=== PATIENT | male | born 1935 | race Caucasian/White ===

== ENCOUNTER 2017-11-17 11:27 | Day surgery (SDC) | payer MEDICARE ==
[~2017-11-17] VITALS: Ht 177.8 cm; Wt 97.5 kg
[~2017-11-17 11:27] MED LIST: HYDR1TAB94 PO; Keflex500 MG PO
[2017-11-18 04:32] LABS: BASOPHILS ABSOLUTE AUTO 0.01 K/mm3 (0.00-0.23); BASOPHILS PERCENT AUTO 0 % (0-2); EOSINOPHILS PERCENT AUTO 0 % (0-6); Hematocrit 37.3 % (37.0-53.0); Hemoglobin 12.2 g/dL (13.5-17.5); IMMATURE GRAN ABSOLUTE AUTO 0.06 K/mm3 (0.00-0.10); IMMATURE GRAN PERCENT AUTO 1 % (0-1); LYMPHOCYTES ABSOLUTE AUTO 0.67 K/mm3 (0.84-5.20); LYMPHOCYTES PERCENT AUTO 5 % (21-46); MONOCYTES PERCENT AUTO 4 % (4-13); Mean Corpuscular HGB 32.4 pg (26.0-34.0); Mean Corpuscular HGB Conc 32.7 g/dL (31.5-36.5); Mean Corpuscular Volume 99 fL (80-100); Mean Platelet Volume 10.9 fL (9.1-12.4); NEUTROPHILS ABSOLUTE AUTO 12.04 K/mm3 (1.96-9.15); NEUTROPHILS PERCENT AUTO 91 % (41-73); Platelet Count 216 K/mm3 (150-400); RDW Coefficient Variation 12.2 % (11.7-14.2); RDW Standard Deviation 44.7 fL (35.1-46.3); Red Blood Cell Count 3.76 M/mm3 (4.30-5.90); White Blood Cell Count 13.28 K/mm3 (4.00-11.30)
[2017-11-18 04:50] LABS: Bun/Creatinine Ratio 13.8 (12.0-20.0); Calcium, Blood 7.7 mg/dL (8.5-10.1); Creatinine, Blood 1.3 mg/dL (0.60-1.20); Potassium, Blood 4.9 mmol/L (3.5-5.5)
[2017-11-18] MEDS ORDERED: ASPI325EC PO (12:02)
[2017-11-18] MEDS ORDERED: Percocet 5-3251 EACH PO (12:05)
== END 2017-11-18 15:04 | disposition home or self-care (01) ==
LOC: ORSCMMR 11:27 → ORD 13:00 → ORSCMMR 13:00 → SURS 17:01 → ORSCMMR 11-18 15:04
PROVIDERS: Orthopaedic Surgery
PROC: 0SRD06A Replacement of Left Knee Joint with Oxidized Zirconium on Polyethylene Synthetic Substitute, Uncemented, Open Approach (ICD-10-PCS; principal; 2017-11-18)
DX: M17.11 Unilateral primary osteoarthritis, right knee (principal)
CPT/HCPCS: 36415; 73560-LT; 80048; 85025; 86850; 86900; 86901; 88300; 97110; 97116; 97162; 97530; C1776; G8978; G8979; G8980; J0171; J0735; J1100; J1885; J2250; J2405; J2710; J2795; J3010; J7120

== ENCOUNTER 2018-03-23 09:59 | Day surgery (SDC) | payer MEDICARE ==
[~2018-03-23] VITALS: Ht 177.8 cm; Wt 93.9 kg
[~2018-03-23 09:59] MED LIST changes: +ASPI325EC PO; +Percocet 5-3251 EACH PO
--- NOTE | 2018-03-23 11:21 | NUR ---
PERMISSION TO TREAT PATIENT GAVE STUDENT NURSE PERMISSION TO TREAT AND ACCESS MEDICAL RECORDS ON THIS DATE.
--- NOTE | 2018-03-23 11:26 | NUR ---
History, Chart, Medications and Allergies reviewed before start of procedure. Lungs clear T/O to Auscultation. Patient confirms NPO status and agrees with scheduled surgery. Patient reports completing Chlorhexadine shower X2 prior to admission to hospital.
--- NOTE | 2018-03-23 18:31 | NUR ---
patient has difficulty using pain scale, says pain is somewhere below 5. sitting in bed reading a paperback book. mckayla wrap dry and intact to right leg
--- NOTE | 2018-03-23 19:00 | NUR ---
RECEIVED HAND OFF FROM DAY NURSE USING SBAR DURING BEDSIDE REPORT. LYING IN SEMI FOWLERS WITH EYES OPEN WHILE READING A BOOK AND TV ON IN THE BACKGROUND. AAO X3, JOHNSON, FOLLOWS ALL COMMANDS. REORIENTED TO ROOM, CALL SYSTEM, AND POC, VOICED UNDERSTANDING. VOICED THAT PAIN IS WELL MANAGED AT THIS TIME, UNABLE TO RATE HIS PAIN CURRENTLY. NURSING REITERATED PAIN SCALE AND THAT HE SHOULD CALL FOR PRN MEDS WHEN PAIN LEVEL IS MAXIMALLY 4/10, VOICES UNDERSTANDING. RESPIRATIONS EVEN AND UNLABORED ON ROOM AIR. LUNG SOUNDS CLEAR BILATERALLY. ABDOMEN SOFT AND NONDISTENDED. BOWEL SOUNDS PRESENT IN ALL QUADS. RIGHT FA 18G PIV IS PATENT, FLUSHING WIHT EASE WHILE INFUSING LR AT 75ML/HR. CONTINENT OF BOWEL AND BLADDER, USES URINAL AT BEDSIDE. 100ML OF CLEAR CONCENTRATED URINE EMPTIED. RIGHT KNEE NOTED WITH CHRYOTHERAPY IN PLACE COVERED IN JONNY WRAP. TEDS/SCD'S TO BLE. DENIES FURTHER NEEDS OR WANTS OR NEEDS AT THIS TIME. SHIFT ASSESSNEMT IN PROGRESS. SAFETY MEASURES IN PLACE. WILL CONTINUE TO MONITOR.
[2018-03-24 04:54] LABS: BASOPHILS ABSOLUTE AUTO 0.03 K/mm3 (0.00-0.23); BASOPHILS PERCENT AUTO 0 % (0-2); EOSINOPHILS ABSOLUTE AUTO 0.03 K/mm3 (0.00-0.68); EOSINOPHILS PERCENT AUTO 0 % (0-6); Hematocrit 39.8 % (37.0-53.0); Hemoglobin 12.4 g/dL (13.5-17.5); IMMATURE GRAN ABSOLUTE AUTO 0.03 K/mm3 (0.00-0.10); IMMATURE GRAN PERCENT AUTO 0 % (0-1); LYMPHOCYTES ABSOLUTE AUTO 1.53 K/mm3 (0.84-5.20); LYMPHOCYTES PERCENT AUTO 12 % (21-46); MONOCYTES ABSOLUTE AUTO 1.19 K/mm3 (0.16-1.47); MONOCYTES PERCENT AUTO 10 % (4-13); Mean Corpuscular HGB 31.6 pg (26.0-34.0); Mean Corpuscular HGB Conc 31.2 g/dL (31.5-36.5); Mean Corpuscular Volume 101 fL (80-100); Mean Platelet Volume 10.9 fL (9.1-12.4); NEUTROPHILS ABSOLUTE AUTO 9.76 K/mm3 (1.96-9.15); NEUTROPHILS PERCENT AUTO 78 % (41-73); Platelet Count 195 K/mm3 (150-400); RDW Coefficient Variation 14.9 % (11.7-14.2); Red Blood Cell Count 3.93 M/mm3 (4.30-5.90); White Blood Cell Count 12.57 K/mm3 (4.00-11.30)
[2018-03-24 05:23] LABS: Bun/Creatinine Ratio 14.1 (12.0-20.0); Calcium, Blood 7.9 mg/dL (8.5-10.1); Creatinine, Blood 1.42 mg/dL (0.60-1.20); Potassium, Blood 4.4 mmol/L (3.5-5.5)
--- NOTE | 2018-03-24 06:13 | NUR ---
LYING IN SEMI FOWLERS WITH EYES CLOSED. TOLERATING PAIN AT 2-3/10. DENIES FURTHER NEEDS AT THIS TIME. SAFETY MEASURES IN PLACE. WILL GIVE HAND OFF TO ONCOMING SHIFT USING SBAR DURING BEDSIDE REPORT.
[2018-03-24] MEDS ORDERED: Percocet 5-3251 EACH PO (09:59)
[2018-03-24] MEDS ORDERED: ASPI325 PO (10:10)
--- NOTE | 2018-03-24 15:40 | NUR ---
PATIENT D/C'D HOME WITH AT THIS TIME; BOTH STATE UNDERSTANDING OF MEDS, ACTIVITY, OP PT, F/U APPT. PATIENT STATES PAIN CONTROLLED WITH P0 PAIN MEDS. TOLERATING PO. NO C/O AT THIS TIME.
== END 2018-03-24 15:41 | disposition home or self-care (01) ==
LOC: ORSCMMR 09:59 → ORD 12:00 → ORSCMMR 12:00 → ORD 13:15 → SURS 17:00 → ORSCMMR 03-24 15:41
PROVIDERS: Orthopaedic Surgery
PROC: 0SRC0JA Replacement of Right Knee Joint with Synthetic Substitute, Uncemented, Open Approach (ICD-10-PCS; principal; 2018-03-23 12:00)
DX: M17.11 Unilateral primary osteoarthritis, right knee (principal); I10 Essential (primary) hypertension
CPT/HCPCS: 36415; 73560-RT; 80048; 85025; 86850; 86900; 86901; 88300; 97110; 97116; 97162; 97530; C1776; J0171; J0735; J1885; J2795; J3010; J7120

== ENCOUNTER 2019-09-07 09:38 | Day surgery (SDC) | payer MEDICARE ==
[~2019-09-07] VITALS: Ht 177.8 cm; Wt 97.0 kg
[~2019-09-07 09:38] MED LIST changes: +ASPI325 PO
--- NOTE | 2019-09-07 10:15 | NUR ---
PT STATES HE TAKES "NO MEDICATIONS"
--- NOTE | 2019-09-07 11:10 | NUR ---
TO GEODETIC ENGINEER FOR PROCEDURE.
--- NOTE | 2019-09-07 12:00 | NUR ---
TO RECOVERY ROOM. TR BAND INTACT RIGHT RADIAL. NO BLEEDING AT SITE.
[2019-09-07] MEDS ORDERED: Aspir 8181 MG PO (12:12)
[2019-09-07] MEDS ORDERED: ATOR20 PO (12:13)
--- NOTE | 2019-09-07 13:15 | NUR ---
TO BATHROOM AND INCONTINENT. TOLERATED WELL.
--- NOTE | 2019-09-07 14:05 | NUR ---
2 CC AIR REMOVED FROM TR BAND. NO BLEEDING AT SITE.
--- NOTE | 2019-09-07 14:20 | NUR ---
ADDITIONAL AIR REMOVED FROM TR BAND. NO BLEEDING AT SITE.
--- NOTE | 2019-09-07 15:20 | NUR ---
DRESSING FOR DISCHARGE. IV REMOVED INTACT. 2X2, COBAN AND MANUAL PRESSURE APPLIED.
--- NOTE | 2019-09-07 15:25 | NUR ---
TR BAND REMOVED. NO BLEEDING AT SITE. POLYMEM, IMMOBILIZER AND SLING APPLIED. DISCHARGE INSTRUCTIONS GIVEN WITH VERBAL AND WRITTEN UNDERSTANDING
--- NOTE | 2019-09-07 15:54 | NUR ---
DISCHARGED HOME VIA WHEELCHAIR. DRIVING.
== END 2019-09-07 16:31 | disposition home or self-care (01) ==
LOC: MHTC 09:38
PROC: 4A023N7 Measurement of Cardiac Sampling and Pressure, Left Heart, Percutaneous Approach (ICD-10-PCS; principal; 2019-09-07)
PROC: B201YZZ Plain Radiography of Multiple Coronary Arteries using Other Contrast (ICD-10-PCS; principal; 2019-09-07)
DX: Z01.810 Encounter for preprocedural cardiovascular examination (principal); I25.10 Atherosclerotic heart disease of native coronary artery without angina pectoris; I11.9 Hypertensive heart disease without heart failure; I08.0 Rheumatic disorders of both mitral and aortic valves; E78.5 Hyperlipidemia, unspecified; Z87.891 Personal history of nicotine dependence; Z88.0 Allergy status to penicillin; Z79.899 Other long term (current) drug therapy; Z79.82 Long term (current) use of aspirin
CPT/HCPCS: 93454; 99152; 99153; C1769; C1894; J1644; J2250; J3010; J7030; Q9967

== ENCOUNTER → 2020-07-24 | Outpatient (CLI) | payer MEDICARE ==
[~2020-07-24] MED LIST changes: +ATOR20 PO; +Aspir 8181 MG PO
== END | disposition home or self-care (01) ==
LOC: LAB SHORT 13:34 → LAB 13:34
DX: L82.1 Other seborrheic keratosis (principal)
CPT/HCPCS: 88305

== ENCOUNTER 2021-10-24 22:05 | Emergency (ER) | payer MEDICARE ==
[~2021-10-24] VITALS: Ht 180.3 cm; Wt 81.2 kg
[2021-10-24 22:29] LABS: BASOPHILS ABSOLUTE AUTO 0.04 K/mm3 (0.00-0.23); BASOPHILS PERCENT AUTO 1 % (0-2); EOSINOPHILS ABSOLUTE AUTO 0.01 K/mm3 (0.00-0.68); EOSINOPHILS PERCENT AUTO 0 % (0-6); Hematocrit 43.4 % (37.0-53.0); Hemoglobin 14.5 g/dL (13.5-17.5); IMMATURE GRAN ABSOLUTE AUTO 0.02 K/mm3 (0.00-0.10); IMMATURE GRAN PERCENT AUTO 0 % (0-1); LYMPHOCYTES ABSOLUTE AUTO 0.68 K/mm3 (0.84-5.20); LYMPHOCYTES PERCENT AUTO 9 % (21-46); MONOCYTES ABSOLUTE AUTO 1.42 K/mm3 (0.16-1.47); MONOCYTES PERCENT AUTO 19 % (4-13); Mean Corpuscular HGB 32.5 pg (26.0-34.0); Mean Corpuscular HGB Conc 33.4 g/dL (31.5-36.5); Mean Corpuscular Volume 97 fL (80-100); Mean Platelet Volume 9.5 fL (9.1-12.4); NEUTROPHILS ABSOLUTE AUTO 5.14 K/mm3 (1.96-9.15); NEUTROPHILS PERCENT AUTO 70 % (41-73); Platelet Count 249 K/mm3 (150-400); RDW Coefficient Variation 13.7 % (11.7-14.2); RDW Standard Deviation 49.8 fL (35.1-46.3); Red Blood Cell Count 4.46 M/mm3 (4.30-5.90); White Blood Cell Count 7.31 K/mm3 (4.00-11.30)
[2021-10-24 22:48] LABS: Albumin, Blood 3.1 g/dL (3.4-5.0); Albumin/Globulin Ratio 0.8 (0.8-1.8); Bilirubin, Total 0.5 mg/dL (0.1-1.0); Bun/Creatinine Ratio 17.1 (12.0-20.0); Creatinine, Blood 1.11 mg/dL (0.60-1.20); Globulin, Blood 4.1 g/dL (2.2-4.0); Total Protein, Blood 7.2 g/dL (6.4-8.2)
[2021-10-24 23:43] LABS: Influenza A, PCR NEGATIVE (NEGATIVE); Influenza B, PCR NEGATIVE (NEGATIVE); Resp Syncytial Virus, PCR NEGATIVE (NEGATIVE)
[2021-10-25 00:03] LABS: SARS-Cov-2 (COVID-19) PCR, MMC POSITIVE (NEGATIVE)
== END 2021-10-25 01:58 | disposition home or self-care (01) ==
LOC: ER 22:05
PROVIDERS: Emergency Medicine
DX: U07.1 COVID-19 (principal); Z79.899 Other long term (current) drug therapy; Z79.82 Long term (current) use of aspirin; Z88.0 Allergy status to penicillin
CPT/HCPCS: 0241U; 36415; 71045; 80053; 85025

== ENCOUNTER 2023-01-03 22:33 | Observation (INO) | payer MEDICARE ==
[~2023-01-03] VITALS: Ht 177.8 cm; Wt 72.0 kg
[2023-01-03 23:02] LABS: BASOPHILS ABSOLUTE AUTO 0.06 K/mm3 (0.00-0.23); BASOPHILS PERCENT AUTO 1 % (0-2); EOSINOPHILS ABSOLUTE AUTO 0.02 K/mm3 (0.00-0.68); EOSINOPHILS PERCENT AUTO 0 % (0-6); Hematocrit 45.4 % (37.0-53.0); IMMATURE GRAN ABSOLUTE AUTO 0.03 K/mm3 (0.00-0.10); IMMATURE GRAN PERCENT AUTO 0 % (0-1); LYMPHOCYTES ABSOLUTE AUTO 1.01 K/mm3 (0.84-5.20); LYMPHOCYTES PERCENT AUTO 9 % (21-46); MONOCYTES ABSOLUTE AUTO 0.89 K/mm3 (0.16-1.47); MONOCYTES PERCENT AUTO 8 % (4-13); Mean Corpuscular HGB 32.7 pg (26.0-34.0); Mean Corpuscular Volume 99 fL (80-100); Mean Platelet Volume 9.6 fL (9.1-12.4); NEUTROPHILS ABSOLUTE AUTO 8.75 K/mm3 (1.96-9.15); NEUTROPHILS PERCENT AUTO 81 % (41-73); Platelet Count 257 K/mm3 (150-400); RDW Coefficient Variation 13.6 % (11.7-14.2); RDW Standard Deviation 49.8 fL (35.1-46.3); Red Blood Cell Count 4.59 M/mm3 (4.30-5.90); White Blood Cell Count 10.76 K/mm3 (4.00-11.30)
[2023-01-03 23:19] LABS: Albumin, Blood 3.1 g/dL (3.4-5.0); Albumin/Globulin Ratio 0.8 (0.8-1.8); Bun/Creatinine Ratio 15.7 (12.0-20.0); Calcium, Blood 8.6 mg/dL (8.5-10.1); Creatinine, Blood 1.08 mg/dL (0.60-1.20); Globulin, Blood 3.8 g/dL (2.2-4.0); Potassium, Blood 4.3 mmol/L (3.5-5.5); Total Protein, Blood 6.9 g/dL (6.4-8.2)
[2023-01-04 00:15] LABS: Ethanol (Alcohol), Blood, Med <3 mg/dL; Salicylate <1.7 mg/dL (2.8-20.0); Thyroid Stimulating Hormone 0.525 uIU/mL (0.360-4.800)
[2023-01-04 00:17] LABS: Acetaminophen, Random <2.0 ug/mL (10.0-30.0); Phosphorus, Blood 2.8 mg/dL (2.5-4.9)
[2023-01-04 00:44] LABS: Influenza A, PCR NEGATIVE (NEGATIVE); Influenza B, PCR NEGATIVE (NEGATIVE); Resp Syncytial Virus, PCR NEGATIVE (NEGATIVE); SARS-Cov-2 (COVID-19) PCR, MMC NEGATIVE (NEGATIVE)
[2023-01-04 02:11] LABS: Base Excess Venous -1.3 mmol/L; Bicarbonate Venous 23.3 mmol/L (24.0-30.0); PCO2 Venous 40.7 mmHg (38-42); pH Blood Venous 7.38 (7.34-7.37)
[2023-01-04 02:42] LABS: Source, Urine Clean Catch
[2023-01-04 02:45] LABS: Bilirubin, Urine Neg (Neg); Blood, Urine 3+ (Neg); Glucose Qualitative, Urine Neg (Neg); Ketones, Urine 4+ (Neg); Leukocyte Esterase, Urine 3+ (Neg); Nitrite, Urine Pos (Neg); Protein, Urine 3+ (Neg); Specific Gravity, Urine 1.025 (1.003-1.022); Urobilinogen, Urine NORM (Normal)
[2023-01-04 02:48] LABS: Appearance, Urine Cloudy (Clear); Color, Urine Yellow (P-Yellow)
[2023-01-04 03:10] LABS: U Amphetamine Screen Not Detected; U Barbituate Screen Not Detected; U Benzodiazapine Screen Not Detected; U Buprenorphine Screen Not Detected; U Cannabinoids Screen Not Detected; U Cocaine Screen Not Detected; U Methadone Screen Not Detected; U Methamphetamine Screen Not Detected; U Opiates Screen Not Detected; U Oxycodone Screen Not Detected; U Phencyclidine Screen Not Detected; U Propoxyphene Screen Not Detected
[2023-01-04 03:15] LABS: International Normalized Ratio 0.97; Prothrombin Time Results 10.2 Sec (9.7-11.5)
[2023-01-04 03:30] LABS: Amorphous Light (0-Heavy); Bacteria Many /hpf; Squamous Epithelial Cells Rare /hpf (Few); White Blood Cells, Urine TNTC /hpf (0-5)
[2023-01-04 05:56] LABS: BASOPHILS ABSOLUTE AUTO 0.05 K/mm3 (0.00-0.23); BASOPHILS PERCENT AUTO 1 % (0-2); EOSINOPHILS ABSOLUTE AUTO 0.03 K/mm3 (0.00-0.68); EOSINOPHILS PERCENT AUTO 0 % (0-6); Hematocrit 43.5 % (37.0-53.0); Hemoglobin 14.6 g/dL (13.5-17.5); IMMATURE GRAN ABSOLUTE AUTO 0.03 K/mm3 (0.00-0.10); IMMATURE GRAN PERCENT AUTO 0 % (0-1); LYMPHOCYTES PERCENT AUTO 7 % (21-46); MONOCYTES ABSOLUTE AUTO 0.35 K/mm3 (0.16-1.47); MONOCYTES PERCENT AUTO 4 % (4-13); Mean Corpuscular HGB 33.2 pg (26.0-34.0); Mean Corpuscular HGB Conc 33.6 g/dL (31.5-36.5); Mean Corpuscular Volume 99 fL (80-100); Mean Platelet Volume 9.9 fL (9.1-12.4); NEUTROPHILS ABSOLUTE AUTO 8.93 K/mm3 (1.96-9.15); NEUTROPHILS PERCENT AUTO 89 % (41-73); Platelet Count 245 K/mm3 (150-400); RDW Coefficient Variation 13.6 % (11.7-14.2); RDW Standard Deviation 49.6 fL (35.1-46.3); White Blood Cell Count 10.09 K/mm3 (4.00-11.30)
[2023-01-04 06:23] LABS: Albumin/Globulin Ratio 0.8 (0.8-1.8); Bilirubin, Total 1.1 mg/dL (0.1-1.0); Bun/Creatinine Ratio 16.5 (12.0-20.0); Calcium, Blood 8.8 mg/dL (8.5-10.1); Creatinine, Blood 1.09 mg/dL (0.60-1.20); Globulin, Blood 3.6 g/dL (2.2-4.0); Potassium, Blood 4.3 mmol/L (3.5-5.5); Total Protein, Blood 6.6 g/dL (6.4-8.2)
[2023-01-04 08:21] VITALS: BP 150/95
--- NOTE | 2023-01-04 10:09 | NUR ---
Received call from Primary RN Nicole reporting would like Pt made comfort care. Joint visit with Dr Wolff this AM. Pt resting in bed and appears pleasant. Pt recalls falling and hitting his head. Pt reports wishes are to be treated including surgery if appropriate. Dr Wolff will order therapy consults. Spoke with Primary RN Sherry. She reports spouse went home to get rest. She will call this PC RN when she comes into visit. Palliative Care will remain available
[2023-01-04 12:00] VITALS: BP 133/76
--- NOTE | 2023-01-04 12:13 | NUR ---
PT'S HAS ARRIVED, PALLIATIVE CARE IS NOTIFIED
--- NOTE | 2023-01-04 14:05 | NUR ---
Supportive visit afternoon. PT Phil working with Pt. Pt's spouse Jennifer at bedside. Reviewed plan of care and engaged in therapeutic conversation regarding advanced care planning. Spouse reports at baseline Pt requires assistance with ambulation and uses a cane. Pt also requires assistance with bathing and dressing. Pt experiences incontinence due to urgency and does not make it to the bathroom in time. Pt has poor appetite. PT Phil reports recommendation is home health. Discussed the importance of planning for the future and the potential need for assistance with caregivers. Offered therapeutic listening and answered questions. Palliative Care will remain available
[2023-01-04 15:23] VITALS: BP 155/76
--- NOTE | 2023-01-04 18:14 | NUR ---
PT ARRIVED FROM ER THIS MORNING FROM ER. HE IS ALERT, HE ANSWERS MOST QUESTIONS APPROPRIATELY. HE IS VERY HARD OF HEARING. VSS, BLOOD PRESSURES HAVE BEEN AT OR BELOW [address] BLACK FOR THIS SHIFT. HE HAS BEEN CLEARED BY SPEECH THERAPY FOR A DIET, HE HAS WORKED WITH PHYSICAL THERAPY HE IS AMBULATING WITH GAIT BELT AND FWW WITH EVEN SLOW STEADY GAIT. HE DENIES PAIN, DENIES CP, LEDESMA, OR SOB. PERRL. HE IS ABLE TO MAKE NEEDS KNOWN BUT HAS NOT SUCCESSFULLY USED CALL LIGHT. HE IS INCONTINENT OF URINE, WAS UNABLE TO KEEP CONDOM CATH IN PLACE. NEW IV WAS PLACED UPON ARRIVAL PT WAS NOT ABLE TO KEEP ARM STRAIGHT FOR FLUIDS TO INFUSE. HAS MET WITH PALLIATIVE CARE, INITIALLY SHE WISHED TO PLACE HIM ON COMFORT CARE, BUT SHE DID DECIDE NOT TO GO THE COMFORT CARE ROUTE HE IS MORE ALERT AND IS EATING AND DRINKING. HE WAS ABLE TO TAKE MEDCIATIONS ORALLY WELL WITH WATER. HE HAD A POOR APPETITE THIS MORNING, BUT HAS COMPLETED HIS ENTIRE DINNER TRAY, PER HE HAS HAD A POOR APPETITE FOR A WHILE.
[2023-01-04 19:45] VITALS: BP 113/73
[2023-01-04 23:03] VITALS: BP 173/83
[2023-01-05] VITALS (7 sets, daily range): BP systolic 114–149; BP diastolic 65–78
[2023-01-05 04:02] LABS: BASOPHILS ABSOLUTE AUTO 0.02 K/mm3 (0.00-0.23); BASOPHILS PERCENT AUTO 0 % (0-2); EOSINOPHILS PERCENT AUTO 0 % (0-6); Hematocrit 39.5 % (37.0-53.0); Hemoglobin 13.4 g/dL (13.5-17.5); IMMATURE GRAN ABSOLUTE AUTO 0.05 K/mm3 (0.00-0.10); IMMATURE GRAN PERCENT AUTO 0 % (0-1); LYMPHOCYTES ABSOLUTE AUTO 0.97 K/mm3 (0.84-5.20); LYMPHOCYTES PERCENT AUTO 8 % (21-46); MONOCYTES ABSOLUTE AUTO 0.94 K/mm3 (0.16-1.47); MONOCYTES PERCENT AUTO 8 % (4-13); Mean Corpuscular HGB 32.8 pg (26.0-34.0); Mean Corpuscular HGB Conc 33.9 g/dL (31.5-36.5); Mean Corpuscular Volume 97 fL (80-100); Mean Platelet Volume 10.2 fL (9.1-12.4); NEUTROPHILS ABSOLUTE AUTO 9.95 K/mm3 (1.96-9.15); NEUTROPHILS PERCENT AUTO 83 % (41-73); Platelet Count 242 K/mm3 (150-400); RDW Coefficient Variation 13.5 % (11.7-14.2); RDW Standard Deviation 48.3 fL (35.1-46.3); Red Blood Cell Count 4.08 M/mm3 (4.30-5.90); White Blood Cell Count 11.93 K/mm3 (4.00-11.30)
[2023-01-05 04:26] LABS: Albumin, Blood 2.8 g/dL (3.4-5.0); Anion Gap 5 mmol/L (6-16); Blood Urea Nitrogen 24 mg/dL (8-24); Bun/Creatinine Ratio 22.4 (12.0-20.0); CO2, Blood 27 mmol/L (21-32); Calcium, Blood 8.8 mg/dL (8.5-10.1); Chloride, Blood 106 mmol/L (98-108); Creatinine, Blood 1.07 mg/dL (0.60-1.20); Glomerular Filtration Rate 67 (60-); Glucose, Blood 110 mg/dL (70-99); Phosphorus, Blood 2.7 mg/dL (2.5-4.9); Potassium, Blood 4.2 mmol/L (3.5-5.5); Sodium, Blood 138 mmol/L (136-145)
--- NOTE | 2023-01-05 05:04 | NUR ---
SHIFT SUMMARY PT A&Ox3, VERY [place], COMMUNICATES NEEDS AND IS COOPERATIVE WITH CARE. BP STABLE, SB-SR 50-60's, DENIES CP/PRESSURE. SpO2> 92% RA, DENIES SOB. CONTINENT OF URINE, USES URINAL AT BEDSIDE WITH ASSISANCE. PT WITH NO C/O PAIN THROUGHOUT SHIFT. NO OTHER EVENTS, WILL REPORT TO ONCOMING RN.
--- NOTE | 2023-01-05 10:32 | NUR ---
AM NOTE: PATIENT ALERT AND ORIENTED X3-4 THIS AM. VERY HARD OF HEARING. AT TIMES FORGETFUL AND NEEDING REMINDERS. ABLE TO STAND WITH ONE PERSON ASSIST. TURNING SELF IN BED. ON ROOM AIR SATING ABOVE 95%. LUNGS SOUNDING CLEAR AND DIM IN BASES. EVEN AND UNLABORED RESPIRATIONS. DENIES SOB/COUGH. TELE SHOWING SB/SR WITH HR 40-60'S. SBP 140'S. DENIES CHEST PAIN/PRESSURE/PALPITATIONS. PPP. LR INFUSING PER EMAR. INCONTINENT THIS AM, USING URINAL AT TIMES WITH ASSISTANCE. SKIN OVERALL FRAGILE AND SCATTERED BRUISING AND SCABS. BOWEL TONES PRESENT. TOLERATING PO INTAKE. ORAL CARE COMPLETED THIS AM. DR. CONNELL BY THIS AM. NO NEW ORDERS FOR THIS RN. THIS RN TO UPDATE DR. CONNELL WHEN IS PRESENT AT BEDSIDE. CALL LIGHT IN REACH. THIS RN REORIENTED PATIENT TO ROOM AND CALL LIGHT.
--- NOTE | 2023-01-05 12:01 | NUR ---
Spiritual care visit conducted. Patient is sitting up in bed drinking coffee and spouse, Jennifer is bedside. Jennifer talks at length about her life growing up and then their lives together for the last 32 yrs. She tells me that she has one dtr and the patient has a dtr and a son who both live in the [place] area in [place]. We discuss how she is coping and her coping strategies. She explains about her struggles and that she is more hopeful today. She says that she is waiting to talk with the physician to learn more about his prognosis and what the p-lópez might be going forward. I provide therapeutic listening and a calming presence. I will continue to remain available to patient and family.
--- NOTE | 2023-01-05 12:32 | NUR ---
DR. CONNELL TO ROOM, PLAN FOR DISCHARGE. PATIENT AT BEDSIDE. POLST COMPLETED AND COPY SENT TO MEDICAL RECORDS AND POLST REGISTRY. PATIENT TO BE SENT HOME WITH POLST.
[2023-01-05] MEDS ORDERED: ACET325 PO (12:37)
[2023-01-05] MEDS ORDERED: PANT40 PO (12:38)
[2023-01-05] MEDS ORDERED: Zofran4 MG PO (12:38)
--- NOTE | 2023-01-05 13:18 | NUR ---
DISCHARGE: DISCHARGE COMPLETE. IV'S REMOVED WNL. ATTENDS CHANGED AND CLEAN CLOTHES PUT ON. POLST FORM SENT HOME WITH DISCHARGE. TENTS ASSEMBLER IN TO TALK ABOUT HOME HEALTH. THIS RN PROVIDED DISCHARGE EDUCATION TO PATIENT AND MARY. MEDICATIONS SENT TO [facility]. PATIENT TO CALL [facility] AND SET UP FOLLOW UP APPOINTMENT. PATIENT TAKEN OUT TO CAR VIA WHEELCHAIR. TELE BOX RETURNED.
== END 2023-01-05 13:15 | disposition home health service (06) ==
LOC: ER 22:33 → PCU 22:34
PROVIDERS: Emergency Medicine; Family Medicine; ADMIT Student in an Organized Health Care Education/Training Program
DX: S06.5XAA Traumatic subdural hemorrhage with loss of consciousness status unknown, initial encounter (principal); W18.30XA Fall on same level, unspecified, initial encounter; R63.4 Abnormal weight loss; Z68.23 Body mass index [BMI] 23.0-23.9, adult; I10 Essential (primary) hypertension; I25.10 Atherosclerotic heart disease of native coronary artery without angina pectoris; Z66 Do not resuscitate; F10.20 Alcohol dependence, uncomplicated; N39.0 Urinary tract infection, site not specified; G93.5 Compression of brain; Z20.822 Contact with and (suspected) exposure to COVID-19
CPT/HCPCS: 0241U; 36415; 51798; 70450; 71046; 80053; 80069; 81001; 82140; 82803; 83605; 83735; 84100; 84443; 84484; 85025; 85610; 85730; 92610; 93005; 93010; 96361; 96374; 96375; 96376; 97110; 97116; 97162; 97165; 97530; 99285-25; A9270; C9113; G0008; G0378; G0480; J0360; J1100; J7120; Q2036

== ENCOUNTER 2023-03-09 20:30 | Inpatient (IN) | payer MEDICARE ==
[~2023-03-09] VITALS: Ht 180.3 cm; Wt 68.6 kg
[~2023-03-09 20:30] MED LIST changes: +ACET325 PO; +PANT40 PO; +Zofran4 MG PO
[2023-03-09 21:25] LABS: BASOPHILS ABSOLUTE AUTO 0.05 K/mm3 (0.00-0.23); BASOPHILS PERCENT AUTO 0 % (0-2); EOSINOPHILS PERCENT AUTO 0 % (0-6); Hematocrit 43.8 % (37.0-53.0); Hemoglobin 14.4 g/dL (13.5-17.5); IMMATURE GRAN ABSOLUTE AUTO 0.06 K/mm3 (0.00-0.10); IMMATURE GRAN PERCENT AUTO 0 % (0-1); LYMPHOCYTES ABSOLUTE AUTO 0.74 K/mm3 (0.84-5.20); LYMPHOCYTES PERCENT AUTO 5 % (21-46); MONOCYTES ABSOLUTE AUTO 1.39 K/mm3 (0.16-1.47); MONOCYTES PERCENT AUTO 10 % (4-13); Mean Corpuscular HGB 32.1 pg (26.0-34.0); Mean Corpuscular HGB Conc 32.9 g/dL (31.5-36.5); Mean Corpuscular Volume 98 fL (80-100); Mean Platelet Volume 10.1 fL (9.1-12.4); NEUTROPHILS ABSOLUTE AUTO 12.34 K/mm3 (1.96-9.15); NEUTROPHILS PERCENT AUTO 85 % (41-73); Platelet Count 258 K/mm3 (150-400); RDW Coefficient Variation 13.5 % (11.7-14.2); Red Blood Cell Count 4.49 M/mm3 (4.30-5.90); White Blood Cell Count 14.58 K/mm3 (4.00-11.30)
[2023-03-09 21:40] LABS: Alanine Aminotransfer (ALT/SGP 14 U/L (12-78); Albumin/Globulin Ratio 0.8 (0.8-1.8); Alk Phos 98 U/L (50-136); Anion Gap 6 mmol/L (6-16); Aspartate Aminotrans (AST/SGOT 28 U/L (12-37); Bilirubin, Total 0.6 mg/dL (0.1-1.0); Blood Urea Nitrogen 18 mg/dL (8-24); Bun/Creatinine Ratio 17.6 (12.0-20.0); CO2, Blood 25 mmol/L (21-32); Calcium, Blood 8.8 mg/dL (8.5-10.1); Chloride, Blood 106 mmol/L (98-108); Creatinine, Blood 1.02 mg/dL (0.60-1.20); Globulin, Blood 3.9 g/dL (2.2-4.0); Glomerular Filtration Rate 71 (60-); Glucose, Blood 128 mg/dL (70-99); Potassium, Blood 4.8 mmol/L (3.5-5.5); Sodium, Blood 137 mmol/L (136-145); Total Protein, Blood 6.9 g/dL (6.4-8.2)
[2023-03-09 22:01] LABS: Source, Urine Clean Catch
[2023-03-09 22:14] LABS: Bilirubin, Urine Neg (Neg); Blood, Urine 3+ (Neg); Color, Urine Yellow (P-Yellow); Glucose Qualitative, Urine Neg (Neg); Ketones, Urine 2+ (Neg); Leukocyte Esterase, Urine 3+ (Neg); Nitrite, Urine Pos (Neg); Protein, Urine 2+ (Neg); Urobilinogen, Urine NORM (Normal)
[2023-03-09 22:19] LABS: Appearance, Urine Hazy (Clear)
[2023-03-09 22:21] LABS: Bacteria Many /hpf; Mucus Light (0-Heavy); Red Blood Cells, Urine 0-2 /hpf (0-2); Squamous Epithelial Cells Rare /hpf (Few); White Blood Cells, Urine 50-100 /hpf (0-5)
[2023-03-09 22:22] LABS: Amorphous Light (0-Heavy); Granular Casts 0-2 /lpf (0); Hyaline Casts 0-2 /lpf (0-2)
[2023-03-10] VITALS (12 sets, daily range): BP systolic 87–155; BP diastolic 65–132
[2023-03-10 00:21] LABS: Ethanol (Alcohol), Blood, Med <3 mg/dL; Magnesium, Blood 1.8 mg/dL (1.6-2.4); Salicylate <1.7 mg/dL (2.8-20.0); Thyroid Stimulating Hormone 0.399 uIU/mL (0.360-4.800)
[2023-03-10 00:25] LABS: Acetaminophen, Random <2.0 ug/mL (10.0-30.0); Phosphorus, Blood 2.4 mg/dL (2.5-4.9)
[2023-03-10 00:30] LABS: International Normalized Ratio 0.97; Prothrombin Time Results 10.2 Sec (9.7-11.5)
[2023-03-10 03:13] LABS: U Amphetamine Screen Not Detected; U Barbituate Screen Not Detected; U Benzodiazapine Screen Not Detected; U Buprenorphine Screen Not Detected; U Cannabinoids Screen Not Detected; U Cocaine Screen Not Detected; U Methadone Screen Not Detected; U Methamphetamine Screen Not Detected; U Opiates Screen Not Detected; U Oxycodone Screen Not Detected; U Phencyclidine Screen Not Detected
[2023-03-10 05:11] LABS: BASOPHILS ABSOLUTE AUTO 0.03 K/mm3 (0.00-0.23); BASOPHILS PERCENT AUTO 0 % (0-2); EOSINOPHILS PERCENT AUTO 0 % (0-6); Hematocrit 45.6 % (37.0-53.0); IMMATURE GRAN ABSOLUTE AUTO 0.06 K/mm3 (0.00-0.10); IMMATURE GRAN PERCENT AUTO 0 % (0-1); LYMPHOCYTES ABSOLUTE AUTO 0.27 K/mm3 (0.84-5.20); LYMPHOCYTES PERCENT AUTO 2 % (21-46); MONOCYTES ABSOLUTE AUTO 1.25 K/mm3 (0.16-1.47); MONOCYTES PERCENT AUTO 7 % (4-13); Mean Corpuscular HGB 32.9 pg (26.0-34.0); Mean Corpuscular HGB Conc 32.9 g/dL (31.5-36.5); Mean Corpuscular Volume 100 fL (80-100); Mean Platelet Volume 10.3 fL (9.1-12.4); NEUTROPHILS ABSOLUTE AUTO 16.07 K/mm3 (1.96-9.15); NEUTROPHILS PERCENT AUTO 91 % (41-73); Platelet Count 233 K/mm3 (150-400); RDW Coefficient Variation 13.5 % (11.7-14.2); Red Blood Cell Count 4.56 M/mm3 (4.30-5.90); White Blood Cell Count 17.68 K/mm3 (4.00-11.30)
[2023-03-10 05:37] LABS: Albumin, Blood 2.8 g/dL (3.4-5.0); Albumin/Globulin Ratio 0.8 (0.8-1.8); Bilirubin, Total 0.6 mg/dL (0.1-1.0); Bun/Creatinine Ratio 17.9 (12.0-20.0); Calcium, Blood 8.4 mg/dL (8.5-10.1); Creatinine, Blood 1.17 mg/dL (0.60-1.20); Globulin, Blood 3.7 g/dL (2.2-4.0); Potassium, Blood 4.3 mmol/L (3.5-5.5); Total Protein, Blood 6.5 g/dL (6.4-8.2)
[2023-03-11 02:20] LABS: Influenza A, PCR NEGATIVE (NEGATIVE); Influenza B, PCR NEGATIVE (NEGATIVE); SARS-Cov-2 (COVID-19) PCR, MMC NEGATIVE (NEGATIVE)
[2023-03-11 02:48] LABS: Resp Syncytial Virus, PCR POSITIVE (NEGATIVE)
[2023-03-11] MEDS ORDERED: ACET325 PO (12:29)
[2023-03-11] MEDS ORDERED: ATROPINE SULFATE2 M1 SL (12:29)
[2023-03-11] MEDS ORDERED: MORP20L PO (12:30)
[2023-03-11] MEDS ORDERED: Ativan1 MG PO (12:30)
== END 2023-03-11 15:00 | disposition hospice, home (50) | DRG 871 ==
LOC: ER 20:30 → PCU 03-10 02:23
PROVIDERS: Emergency Medicine; ADMIT Internal Medicine
DX: A41.9 Sepsis, unspecified organism (principal); G93.41 Metabolic encephalopathy; S06.5X0A Traumatic subdural hemorrhage without loss of consciousness, initial encounter; E87.20 Acidosis, unspecified; J90 Pleural effusion, not elsewhere classified; N39.0 Urinary tract infection, site not specified; J98.11 Atelectasis; Z51.5 Encounter for palliative care; Z66 Do not resuscitate; I10 Essential (primary) hypertension; R65.20 Severe sepsis without septic shock; W18.30XA Fall on same level, unspecified, initial encounter; M19.90 Unspecified osteoarthritis, unspecified site; I25.10 Atherosclerotic heart disease of native coronary artery without angina pectoris; R40.2362 Coma scale, best motor response, obeys commands, at arrival to emergency department; R40.2142 Coma scale, eyes open, spontaneous, at arrival to emergency department; R40.2252 Coma scale, best verbal response, oriented, at arrival to emergency department; Z88.0 Allergy status to penicillin; Z96.653 Presence of artificial knee joint, bilateral; Z95.2 Presence of prosthetic heart valve; Z11.52 Encounter for screening for COVID-19; R05.9 Cough, unspecified
CPT/HCPCS: 0241U; 31720; 36415; 51798; 70450; 71045; 71046; 72125; 72170; 80053; 81001; 82140; 83605; 83690; 83735; 83880; 84100; 84443; 85025; 85610; 85730; 87040; 87086; 93005; 93010; 94760; 96374; 99285-25; A9270; G0480; J0696; J1940; J2060; J2270; J7030; J7040